=== PATIENT | female | born 1950 | race Caucasian/White ===

== ENCOUNTER 2023-06-10 15:18 | Outpatient (AMB) | payer MEDICARE, SELFPAY ==
[2023-06-10 16:05] VITALS: BP 128/74; PULSE 107; O2SAT 95; BMI 27.6
--- NOTE | 2023-06-10 16:05 | AM.OFFWIN_ITS ---
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 Patient has a rash on her right elbow that she would liked reviewed. PFSH Social History Patient Tobacco Use Status: Never used Tobacco Physical Exam Vital Signs: Last Vital Signs Pulse 107 H 06/10/23 16:05 BP 128/74 06/10/23 16:05 Pulse Ox 95 06/10/23 16:05 Oxygen Delivery Method Room Air 06/10/23 16:05 BMI result Body Mass Index 27.6 Skin Other: Right elbow: Erythematous rash over the dorsum of the elbow. Tiny weepy lesion in the center. No vesicles or pustules. Assessment & Plan Assessment & Plan (1) Insect bite: Code(s): W57.XXXA - Bitten or stung by nonvenomous insect and other nonvenomous arthropods, initial encounter Plan: Hydrocortisone cream prescribed. If symptoms do not improve to follow-up here. Coding Level of Care Code Est Pt Level 3 (45618) Diagnoses Insect bite W57.XXXA
== END 2023-06-10 16:36 | disposition home or self-care (01) ==
PROVIDERS: PCP Student in an Organized Health Care Education/Training Program; Visit Provider Internal Medicine
DX: T63.481A Toxic effect of venom of other arthropod, accidental (unintentional), initial encounter (principal)
CPT/HCPCS: 99213